=== PATIENT | female | born 1985 | race Caucasian/White ===

== ENCOUNTER 2021-08-07 14:11 | Inpatient (IN) | payer OTHER ==
[2021-08-07] MEDS ORDERED: diazePAM 5 MG TABLET PO ONE (18:53)
[2021-08-07] MEDS ORDERED: NICOTINE 10 MG CARTRIDGE (INHALER) IH PRN (18:53)
[2021-08-07] MEDS ORDERED: NICOTINE POLACRILEX 4 MG GUM BUC PRN (18:53)
[2021-08-07] MEDS ORDERED: ONDANSETRON *ODT* 4 MG TABLET SL PRN (18:53)
[2021-08-07] MEDS ORDERED: MAG HYDROX/AL HYDROX/SIMETH 30 ML UNIT-DOSE CUP PO PRN (18:53)
[2021-08-07] MEDS ORDERED: ACETAMINOPHEN 325 MG TABLET (FP) PO PRN (18:53)
[2021-08-07] MEDS ORDERED: MENTHOL/PHENOL 1 EACH UD MM PRN (18:53)
[2021-08-07] MEDS ORDERED: MAGNESIUM CITRATE 300 ML BOTTLE PO PRN (18:53)
[2021-08-07] MEDS ORDERED: MAGNESIUM HYDROX 2400MG/30ML ORAL SUSPENSION 30 ML CUP PO PRN (18:53)
[2021-08-07] MEDS ORDERED: BISMUTH SUBSALICYLATE 524 MG/30 ML PO PRN (18:53)
[2021-08-07] MEDS ORDERED: COLLOIDAL OATMEAL 1 BAR EACH TP PRN (18:56)
[2021-08-07 19:21] VITALS: BMI 27.4
[2021-08-07] MEDS: ACETAMINOPHEN 325 MG TABLET (FP) PO PRN (21:11)
[2021-08-07] MEDS: THIAMINE HCL 100 MG TABLET (FP) PO SCH (21:13)
[2021-08-07] MEDS ORDERED: hydrOXYzine PAMOATE 25 MG CAPSULE (FP) PO SCH (22:00)
[2021-08-07] MEDS ORDERED: CHLORHEXIDINE GLUCONATE 0.12% 15ML CUP MM SCH (22:00)
[2021-08-07] MEDS ORDERED: MELATONIN 5 MG TABLETS PO SCH (22:00)
[2021-08-07] MEDS: diazePAM 5 MG TABLET PO SCH ×2 (23:11→23:12)
[2021-08-07] MEDS: ZINC OXIDE 20% TOPICAL OINTMENT 30 GM TUBE TP SCH (23:46)
[2021-08-08] MEDS: diazePAM 5 MG TABLET PO SCH ×5 (06:23→22:37)
[2021-08-08] MEDS: METHOCARBAMOL 500 MG TABLET PO PRN ×2 (06:24→14:11)
[2021-08-08] MEDS: CHLORHEXIDINE GLUCONATE 118 ML MOUTHWASH MM SCH ×2 (10:20→22:36)
[2021-08-08] MEDS: PRENATAL VITAMINS W/ FOLIC ACID TABLET (FP) PO SCH (10:21)
[2021-08-08] MEDS: ZINC OXIDE 20% TOPICAL OINTMENT 30 GM TUBE TP SCH ×2 (10:22→22:36)
[2021-08-08 11:54] LABS: HEMATOCRIT 39.5 % (32.4-45.2); HEMOGLOBIN 13.3 GM/dL (10.7-15.3); MCH 30.1 pg (25.7-33.7); MCHC 33.8 g/dl (32.0-36.0); MEAN CELL VOLUME 89.2 fl (80-96); MEAN PLT VOLUME 7.2 fl (7.5-11.1); PLATELET COUNT 266 10^3/uL (134-434); RBC 4.42 M/mm3 (3.60-5.2); RDW 14.3 % (11.6-15.6); WHITE BLOOD COUNT 5.2 K/mm3 (4.0-10.0)
[2021-08-08 12:01] LABS: BLOOD UREA NITROGEN 13.7 mg/dL (7-18); CALCIUM 8.5 mg/dL (8.5-10.1)
[2021-08-08 12:02] LABS: ALBUMIN 3.3 g/dl (3.4-5.0)
[2021-08-08 12:05] LABS: CREATININE 0.7 mg/dL (0.55-1.3)
[2021-08-08 12:06] LABS: BILIRUBIN,TOTAL 0.4 mg/dL (0.2-1); TOT PROT 6.5 g/dl (6.4-8.2)
[2021-08-08] MEDS: diazePAM 5 MG TABLET PO PRN ×2 (14:42→19:27)
[2021-08-08] MEDS ORDERED: SUVOREXANT 10 MG TABLET PO PRN (22:00)
[2021-08-08] MEDS: THIAMINE HCL 100 MG TABLET (FP) PO SCH (22:36)
[2021-08-08] MEDS: ACETAMINOPHEN 325 MG TABLET (FP) PO PRN (23:12)
[2021-08-08] MEDS: IBUPROFEN 400 MG TABLET (FP) PO PRN (23:26)
[2021-08-09] MEDS: diazePAM 5 MG TABLET PO SCH ×3 (06:13→22:21)
[2021-08-09] MEDS: ZINC OXIDE 20% TOPICAL OINTMENT 30 GM TUBE TP SCH ×2 (10:04→22:22)
[2021-08-09] MEDS: diazePAM 5 MG TABLET PO PRN (10:05)
[2021-08-09] MEDS: hydrOXYzine PAMOATE 50 MG CAPSULE (FP) PO PRN ×2 (10:05→17:44)
[2021-08-09] MEDS: PRENATAL VITAMINS W/ FOLIC ACID TABLET (FP) PO SCH (10:05)
[2021-08-09] MEDS: CHLORHEXIDINE GLUCONATE 118 ML MOUTHWASH MM SCH ×2 (10:08→22:21)
[2021-08-09] MEDS: METHOCARBAMOL 500 MG TABLET PO PRN (17:44)
[2021-08-09] MEDS: IBUPROFEN 400 MG TABLET (FP) PO PRN (18:51)
[2021-08-09] MEDS ORDERED: SUVOREXANT 15 MG TABLET PO PRN (22:00)
[2021-08-09] MEDS: THIAMINE HCL 100 MG TABLET (FP) PO SCH (22:21)
[2021-08-09] MEDS: ACETAMINOPHEN 325 MG TABLET (FP) PO PRN (22:25)
[2021-08-10] MEDS: diazePAM 5 MG TABLET PO SCH ×2 (06:03→17:42)
[2021-08-10] MEDS: PRENATAL VITAMINS W/ FOLIC ACID TABLET (FP) PO SCH (10:03)
[2021-08-10] MEDS: CHLORHEXIDINE GLUCONATE 118 ML MOUTHWASH MM SCH ×2 (10:03→23:00)
[2021-08-10] MEDS: METHOCARBAMOL 500 MG TABLET PO PRN (10:04)
[2021-08-10] MEDS: diazePAM 5 MG TABLET PO PRN ×2 (10:04→14:17)
[2021-08-10] MEDS: ZINC OXIDE 20% TOPICAL OINTMENT 30 GM TUBE TP SCH ×2 (10:04→23:01)
[2021-08-10] MEDS: IBUPROFEN 400 MG TABLET (FP) PO PRN ×2 (13:16→19:46)
[2021-08-10] MEDS: ACETAMINOPHEN 325 MG TABLET (FP) PO PRN (17:43)
[2021-08-10] MEDS: LIDOCAINE VISCOUS 2% ORAL/TOP 15 ML UNIT-DOSE CUP MM PRN (19:43)
[2021-08-10] MEDS: hydrOXYzine PAMOATE 50 MG CAPSULE (FP) PO PRN (19:43)
[2021-08-10] MEDS: THIAMINE HCL 100 MG TABLET (FP) PO SCH (23:00)
[2021-08-11] MEDS: LIDOCAINE VISCOUS 2% ORAL/TOP 15 ML UNIT-DOSE CUP MM PRN (02:47)
[2021-08-11] MEDS ORDERED: diazePAM 5 MG TABLET PO ONE (06:00)
[2021-08-11] MEDS: hydrOXYzine PAMOATE 50 MG CAPSULE (FP) PO PRN (06:12)
[2021-08-11 09:47] VITALS: BP 109/65; PULSE 102; TEMP 97
[2021-08-11] MEDS: ZINC OXIDE 20% TOPICAL OINTMENT 30 GM TUBE TP SCH (10:09)
[2021-08-11] MEDS: CHLORHEXIDINE GLUCONATE 118 ML MOUTHWASH MM SCH (10:10)
[2021-08-11] MEDS: PRENATAL VITAMINS W/ FOLIC ACID TABLET (FP) PO SCH (10:10)
== END 2021-08-11 10:51 | disposition home or self-care (01) | DRG 774 ==
LOC: YASAS 14:11 → Y6N 19:05
PROVIDERS: ADMIT Allergy & Immunology; ATTEND Allergy & Immunology
PROC: HZ2ZZZZ Detoxification Services for Substance Abuse Treatment (ICD-10-PCS; principal; 2021-08-07)
DX: F10.230 Alcohol dependence with withdrawal, uncomplicated (principal); F14.20 Cocaine dependence, uncomplicated; F17.210 Nicotine dependence, cigarettes, uncomplicated; F19.280 Other psychoactive substance dependence with psychoactive substance-induced anxiety disorder; F19.282 Other psychoactive substance dependence with psychoactive substance-induced sleep disorder; K08.89 Other specified disorders of teeth and supporting structures; R76.11 Nonspecific reaction to tuberculin skin test without active tuberculosis; Z56.0 Unemployment, unspecified
CPT/HCPCS: 36415; 71046-TC-FY; 80053; 85027; 86780; C9803; U0003; U0005

== ENCOUNTER 2021-12-25 08:43 | Inpatient (IN) | payer OTHER ==
[2021-12-25] MEDS ORDERED: BISMUTH SUBSALICYLATE 262 MG/15 ML BTL PO PRN (09:24)
[2021-12-25] MEDS ORDERED: MAGNESIUM CITRATE 300 ML BOTTLE PO PRN (09:24)
[2021-12-25] MEDS ORDERED: ACETAMINOPHEN 325 MG TABLET (FP) PO PRN (09:24)
[2021-12-25] MEDS ORDERED: ONDANSETRON *ODT* 4 MG TABLET SL PRN (09:24)
[2021-12-25] MEDS ORDERED: cloNIDine HCL 0.1 MG TABLET PO ONE (09:24)
[2021-12-25] MEDS ORDERED: MAGNESIUM HYDROX 2400MG/30ML ORAL SUSPENSION 30 ML CUP PO PRN (09:24)
[2021-12-25] MEDS ORDERED: BUPRENORPHINE HCL 150 MCG, BUPRENORPHINE HCL 75 MCG BC ONE (09:24)
[2021-12-25] MEDS ORDERED: NICOTINE 10 MG CARTRIDGE (INHALER) IH PRN (09:24)
[2021-12-25] MEDS ORDERED: diazePAM 5 MG TABLET PO PRN (09:24)
[2021-12-25] MEDS ORDERED: MAG HYDROX/AL HYDROX/SIMETH 30 ML UNIT-DOSE CUP PO PRN (09:24)
[2021-12-25] MEDS ORDERED: MENTHOL/PHENOL 1 EACH UD MM PRN (09:24)
[2021-12-25] MEDS ORDERED: LOPERAMIDE HCL 2 MG CAPSULE PO PRN (09:24)
[2021-12-25 09:29] VITALS: BMI 26.1
[2021-12-25] MEDS ORDERED: BUPRENORPHINE HCL 150 MCG FILM BC ONE (09:36)
[2021-12-25] MEDS ORDERED: BUPRENORPHINE HCL 75 MCG FILM BC ONE (09:36)
[2021-12-25] MEDS ORDERED: ONDANSETRON *ODT* 4 MG TABLET ONE (09:37)
[2021-12-25] MEDS: PRENATAL VITAMINS W/ FOLIC ACID TABLET (FP) PO SCH (10:34)
[2021-12-25] MEDS: hydrOXYzine PAMOATE 25 MG CAPSULE (FP) PO SCH ×4 (10:35→22:24)
[2021-12-25 13:43] LABS: HEMATOCRIT 39.6 % (32.4-45.2); HEMOGLOBIN 12.9 GM/dL (10.7-15.3); MCH 29.7 pg (25.7-33.7); MCHC 32.5 g/dl (32.0-36.0); MEAN CELL VOLUME 91.4 fl (80-96); MEAN PLT VOLUME 7.7 fl (7.5-11.1); PLATELET COUNT 266 10^3/uL (134-434); RBC 4.33 M/mm3 (3.60-5.2); RDW 13.5 % (11.6-15.6); WHITE BLOOD COUNT 7.1 K/mm3 (4.0-10.0)
[2021-12-25 13:51] LABS: ALBUMIN 3.8 g/dl (3.4-5.0); BLOOD UREA NITROGEN 12.3 mg/dL (7-18)
[2021-12-25 13:55] LABS: CREATININE 0.9 mg/dL (0.55-1.3)
[2021-12-25 13:56] LABS: BILIRUBIN,TOTAL 0.8 mg/dL (0.2-1); TOT PROT 6.9 g/dl (6.4-8.2)
[2021-12-25 14:06] LABS: CALCIUM 8.6 mg/dL (8.5-10.1)
[2021-12-25] MEDS ORDERED: SUVOREXANT 10 MG TABLET PO PRN (22:00)
[2021-12-25] MEDS: MELATONIN 5 MG TABLETS PO SCH (22:23)
[2021-12-25] MEDS: THIAMINE HCL 100 MG TABLET (FP) PO SCH (22:24)
[2021-12-26] MEDS ORDERED: BUPRENORPHINE HCL 75 MCG FILM BC ONE ×2 (04:29→17:34)
[2021-12-26] MEDS ORDERED: BUPRENORPHINE HCL 150 MCG FILM BC ONE ×2 (04:29→17:33)
[2021-12-26] MEDS: hydrOXYzine PAMOATE 25 MG CAPSULE (FP) PO SCH ×5 (06:20→22:14)
[2021-12-26] MEDS: BUPRENORPHINE HCL 150 MCG, BUPRENORPHINE HCL 75 MCG BC SCH ×2 (06:24→18:13)
[2021-12-26] MEDS: PRENATAL VITAMINS W/ FOLIC ACID TABLET (FP) PO SCH (10:09)
[2021-12-26] MEDS: cloNIDine HCL 0.1 MG TABLET PO PRN (14:07)
[2021-12-26] MEDS ORDERED: POTASSIUM CHLORIDE ORAL LIQUID 20 MEQ/15 ML PO ONE ×2 (15:30→19:30)
[2021-12-26] MEDS ORDERED: BACLOFEN 10 MG TABLET (FP) PO ONE (15:42)
[2021-12-26] MEDS: THIAMINE HCL 100 MG TABLET (FP) PO SCH (22:14)
[2021-12-26] MEDS: MELATONIN 5 MG TABLETS PO SCH (22:14)
[2021-12-26] MEDS: METHOCARBAMOL 500 MG TABLET PO PRN (22:14)
[2021-12-27] MEDS: BUPRENORPHINE HCL 450 MCG FILM BC SCH ×2 (06:28→17:03)
[2021-12-27] MEDS: hydrOXYzine PAMOATE 25 MG CAPSULE (FP) PO SCH ×5 (06:30→22:14)
[2021-12-27] MEDS: PRENATAL VITAMINS W/ FOLIC ACID TABLET (FP) PO SCH (10:11)
[2021-12-27] MEDS: METHOCARBAMOL 500 MG TABLET PO PRN (10:11)
[2021-12-27] MEDS: IBUPROFEN 400 MG TABLET (FP) PO PRN (10:14)
[2021-12-27] MEDS: METHYL SALICYLATE/MENTHOL OINT 30 GM TUBE TP SCH ×2 (10:21→22:15)
[2021-12-27] MEDS: BACITRACIN/POLYMYXIN B SULFATE 15 GM TUBE TP SCH ×2 (10:21→22:15)
[2021-12-27] MEDS ORDERED: SUVOREXANT 10 MG TABLET PO PRN (22:00)
[2021-12-27] MEDS: MELATONIN 5 MG TABLETS PO SCH (22:14)
[2021-12-27] MEDS: ACETAMINOPHEN 325 MG TABLET (FP) PO PRN (22:14)
[2021-12-27] MEDS: THIAMINE HCL 100 MG TABLET (FP) PO SCH (22:14)
[2021-12-28] MEDS: hydrOXYzine PAMOATE 25 MG CAPSULE (FP) PO SCH ×6 (05:42→22:18)
[2021-12-28] MEDS: ACETAMINOPHEN 325 MG TABLET (FP) PO PRN ×2 (05:43→17:24)
[2021-12-28] MEDS: BUPRENORPHINE/NALOXONE 4 MG/1 MG FILM PACKET SL SCH ×2 (05:44→17:23)
[2021-12-28] MEDS ORDERED: diazePAM 5 MG TABLET PO PRN (09:54)
[2021-12-28] MEDS: METHOCARBAMOL 500 MG TABLET PO PRN (10:00)
[2021-12-28] MEDS: BACITRACIN/POLYMYXIN B SULFATE 15 GM TUBE TP SCH ×2 (10:00→22:19)
[2021-12-28] MEDS: PRENATAL VITAMINS W/ FOLIC ACID TABLET (FP) PO SCH (10:00)
[2021-12-28] MEDS: cloNIDine HCL 0.1 MG TABLET PO PRN (10:00)
[2021-12-28] MEDS: METHYL SALICYLATE/MENTHOL OINT 30 GM TUBE TP SCH ×2 (10:00→22:19)
[2021-12-28] MEDS: IBUPROFEN 400 MG TABLET (FP) PO PRN (10:04)
[2021-12-28 14:08] LABS: SARS-CoV-2 NAA Not Detected (Not Detected)
[2021-12-28] MEDS ORDERED: BENZOCAINE 20 % GEL TUBE MM PRN (18:21)
[2021-12-28] MEDS: THIAMINE HCL 100 MG TABLET (FP) PO SCH (22:18)
[2021-12-28] MEDS: MELATONIN 5 MG TABLETS PO SCH (22:19)
[2021-12-29] MEDS ORDERED: BUPRENORPHINE/NALOXONE 8 MG/2 MG FILM PACKET SL ONE (06:00)
[2021-12-29] MEDS: ACETAMINOPHEN 325 MG TABLET (FP) PO PRN ×3 (06:15→17:38)
[2021-12-29] MEDS: hydrOXYzine PAMOATE 25 MG CAPSULE (FP) PO SCH ×5 (06:17→22:19)
[2021-12-29] MEDS: METHOCARBAMOL 500 MG TABLET PO PRN (10:28)
[2021-12-29] MEDS: PRENATAL VITAMINS W/ FOLIC ACID TABLET (FP) PO SCH (10:28)
[2021-12-29] MEDS: METHYL SALICYLATE/MENTHOL OINT 30 GM TUBE TP SCH ×2 (10:28→22:22)
[2021-12-29] MEDS: BACITRACIN/POLYMYXIN B SULFATE 15 GM TUBE TP SCH ×2 (10:29→22:22)
[2021-12-29] MEDS: IBUPROFEN 400 MG TABLET (FP) PO PRN ×2 (13:32→22:20)
[2021-12-29 18:52] VITALS: TEMP 97.1
[2021-12-29] MEDS: THIAMINE HCL 100 MG TABLET (FP) PO SCH (22:19)
[2021-12-29] MEDS: MELATONIN 5 MG TABLETS PO SCH (22:22)
[2021-12-30] MEDS: ACETAMINOPHEN 325 MG TABLET (FP) PO PRN (05:41)
[2021-12-30] MEDS: hydrOXYzine PAMOATE 25 MG CAPSULE (FP) PO SCH ×2 (07:11→10:16)
[2021-12-30 08:03] VITALS: BP 106/44; PULSE 67
[2021-12-30] MEDS ORDERED: BUPRENORPHINE/NALOXONE 8 MG/2 MG FILM PACKET SL ONE (09:28)
[2021-12-30] MEDS: PRENATAL VITAMINS W/ FOLIC ACID TABLET (FP) PO SCH (10:15)
[2021-12-30] MEDS: BACITRACIN/POLYMYXIN B SULFATE 15 GM TUBE TP SCH (10:16)
[2021-12-30] MEDS: METHYL SALICYLATE/MENTHOL OINT 30 GM TUBE TP SCH (10:16)
== END 2021-12-30 10:50 | disposition home or self-care (01) | DRG 773 ==
LOC: YASAS 08:43 → Y6N 09:18
PROVIDERS: ADMIT Allergy & Immunology; ATTEND Allergy & Immunology
PROC: HZ2ZZZZ Detoxification Services for Substance Abuse Treatment (ICD-10-PCS; principal; 2021-12-25)
DX: F11.23 Opioid dependence with withdrawal (principal); F14.20 Cocaine dependence, uncomplicated; F17.210 Nicotine dependence, cigarettes, uncomplicated; F19.280 Other psychoactive substance dependence with psychoactive substance-induced anxiety disorder; F19.282 Other psychoactive substance dependence with psychoactive substance-induced sleep disorder; F19.24 Other psychoactive substance dependence with psychoactive substance-induced mood disorder; F41.8 Other specified anxiety disorders; F32.A Depression, unspecified; Z86.11 Personal history of tuberculosis; Z56.0 Unemployment, unspecified; Z59.00 Homelessness unspecified
CPT/HCPCS: 36415; 80053; 84132; 85027; 86780; 93005; 93010; C9803; J0475; J0735; Q0162; U0003; U0005

== ENCOUNTER 2023-01-20 10:46 | Inpatient (IN) | payer OTHER ==
[2023-01-20 11:27] VITALS: BMI 29.7
[2023-01-20] MEDS ORDERED: hydrOXYzine PAMOATE 25 MG CAPSULE (FP) PO PRN (12:05)
[2023-01-20] MEDS ORDERED: NALOXONE HCL (KLOXXADO) 8 MG SPRAY NS PRN (12:05)
[2023-01-20] MEDS ORDERED: BUPRENORPHINE HCL 150 MCG, BUPRENORPHINE HCL 75 MCG BC ONE (12:05)
[2023-01-20] MEDS ORDERED: ONDANSETRON *ODT* 4 MG TABLET SL PRN (12:05)
[2023-01-20] MEDS ORDERED: BISMUTH SUBSALICYLATE 262 MG/15 ML BTL PO PRN (12:05)
[2023-01-20] MEDS ORDERED: diazePAM 5 MG TABLET PO PRN (12:05)
[2023-01-20] MEDS ORDERED: ACETAMINOPHEN 325 MG TABLET (FP) PO PRN (12:05)
[2023-01-20] MEDS ORDERED: BUPRENORPHINE HCL 150 MCG, BUPRENORPHINE HCL 75 MCG BC PRN (12:05)
[2023-01-20] MEDS ORDERED: NICOTINE 10 MG CARTRIDGE (INHALER) IH PRN (12:05)
[2023-01-20] MEDS ORDERED: NALOXONE HCL 0.4 MG/ML VIAL IM PRN (12:05)
[2023-01-20] MEDS ORDERED: MAG HYDROX/AL HYDROX/SIMETH 30 ML UNIT-DOSE CUP PO PRN (12:05)
[2023-01-20] MEDS ORDERED: MAGNESIUM HYDROX 2400MG/30ML ORAL SUSPENSION 30 ML CUP PO PRN (12:05)
[2023-01-20] MEDS ORDERED: IBUPROFEN 400 MG TABLET (FP) PO PRN (12:05)
[2023-01-20] MEDS ORDERED: POLYETHYLENE GLYCOL (HEALTHYLAX) 3350 17 GM PACKET PO PRN (12:05)
[2023-01-20] MEDS ORDERED: guaiFENesin 600 MG TABLET.ER (FP) PO PRN (12:05)
[2023-01-20] MEDS ORDERED: BENZONATATE 200 MG CAPSULE PO PRN (12:05)
[2023-01-20] MEDS ORDERED: IBUPROFEN 600 MG TABLET (FP) PO PRN (12:05)
[2023-01-20] MEDS ORDERED: BENZOCAINE/MENTHOL (CHLORASEPTIC ) LOZENGE MM PRN (12:05)
[2023-01-20] MEDS ORDERED: DICYCLOMINE HCL 10 MG CAPSULE PO PRN (12:05)
[2023-01-20] MEDS ORDERED: LOPERAMIDE HCL 2 MG CAPSULE PO PRN (12:05)
[2023-01-20] MEDS ORDERED: cloNIDine HCL 0.1 MG TABLET PO ONE (12:05)
[2023-01-20] MEDS ORDERED: BUPRENORPHINE HCL 75 MCG FILM BC ONE (12:33)
[2023-01-20] MEDS ORDERED: BUPRENORPHINE HCL 150 MCG FILM BC ONE (12:33)
[2023-01-20] MEDS: PRENATAL VITAMINS W/ FOLIC ACID TABLET (FP) PO SCH (12:39)
[2023-01-20] MEDS ORDERED: cloNIDine HCL 0.1 MG TABLET PO PRN (16:05)
[2023-01-20 16:39] LABS: HEMATOCRIT 39.4 % (32.4-45.2); MCH 28.1 pg (25.7-33.7); MEAN CELL VOLUME 85.3 fl (80-96); MEAN PLT VOLUME 7.4 fl (7.5-11.1); PLATELET COUNT 315 10^3/uL (134-434); RBC 4.62 M/mm3 (3.60-5.2); RDW 13.7 % (11.6-15.6)
[2023-01-20 16:41] LABS: CALCIUM 8.6 mg/dL (8.5-10.1)
[2023-01-20 16:42] LABS: ALBUMIN 3.6 g/dl (3.4-5.0); BLOOD UREA NITROGEN 12.3 mg/dL (7-18)
[2023-01-20 16:46] LABS: CREATININE 0.6 mg/dL (0.55-1.3)
[2023-01-20 16:47] LABS: BILIRUBIN,TOTAL 0.6 mg/dL (0.2-1); TOT PROT 7.2 g/dl (6.4-8.2)
[2023-01-20] MEDS ORDERED: THIAMINE HCL 100 MG TABLET (FP) PO SCH (22:00)
[2023-01-20] MEDS ORDERED: MELATONIN 5 MG TABLETS PO SCH (22:00)
[2023-01-20] MEDS: METHOCARBAMOL 500 MG TABLET PO PRN (22:32)
[2023-01-21] MEDS ORDERED: BUPRENORPHINE HCL 150 MCG, BUPRENORPHINE HCL 75 MCG BC PRN
[2023-01-21] MEDS ORDERED: BUPRENORPHINE HCL 150 MCG, BUPRENORPHINE HCL 75 MCG BC SCH (06:00)
[2023-01-21 09:04] VITALS: BP 101/54; PULSE 83; RESP 16; TEMP 97.1
[2023-01-21] MEDS ORDERED: cloNIDine HCL 0.1 MG TABLET PO PRN (09:55)
[2023-01-21] MEDS ORDERED: methaDONE HCL 10 MG TABLET (FOR DETOX USE ONLY) PO ONE (09:55)
[2023-01-21] MEDS: METHOCARBAMOL 500 MG TABLET PO PRN (10:27)
[2023-01-21] MEDS: PRENATAL VITAMINS W/ FOLIC ACID TABLET (FP) PO SCH (10:27)
[2023-01-21] MEDS ORDERED: SUVOREXANT 10 MG TABLET PO PRN (22:00)
[2023-01-22] MEDS ORDERED: BUPRENORPHINE HCL 450 MCG FILM BC SCH (06:00)
[2023-01-23] MEDS ORDERED: BUPRENORPHINE/NALOXONE 4 MG/1 MG FILM PACKET SL SCH (06:00)
[2023-01-23] MEDS ORDERED: methaDONE HCL 10 MG TABLET (FOR DETOX USE ONLY) PO ONE (10:00)
[2023-01-24] MEDS ORDERED: BUPRENORPHINE/NALOXONE 8 MG/2 MG FILM PACKET SL ONE (06:00)
[2023-01-25] MEDS ORDERED: methaDONE HCL 10 MG TABLET (FOR DETOX USE ONLY) PO ONE (10:00)
== END 2023-01-21 11:29 | disposition left against medical advice (07) | DRG 770 ==
LOC: YASAS 10:46 → Y3N 12:28
PROVIDERS: ADMIT Allergy & Immunology; ATTEND Surgery
PROC: HZ2ZZZZ Detoxification Services for Substance Abuse Treatment (ICD-10-PCS; principal; 2023-01-20)
DX: F11.23 Opioid dependence with withdrawal (principal); F14.20 Cocaine dependence, uncomplicated; F17.210 Nicotine dependence, cigarettes, uncomplicated; F19.282 Other psychoactive substance dependence with psychoactive substance-induced sleep disorder; F19.24 Other psychoactive substance dependence with psychoactive substance-induced mood disorder; R76.11 Nonspecific reaction to tuberculin skin test without active tuberculosis; Z56.0 Unemployment, unspecified; Z59.00 Homelessness unspecified
CPT/HCPCS: 36415; 80053; 85027; 86780; 87811; 93005; 93010; C9803-CS; U0003; U0005

== ENCOUNTER 2023-11-14 17:21 | Inpatient (IN) | payer OTHER ==
[2023-11-14 17:50] VITALS: BMI 18.8
[2023-11-14] MEDS ORDERED: NALOXONE HCL (KLOXXADO) 8 MG SPRAY NS PRN (19:56)
[2023-11-14] MEDS ORDERED: NALOXONE HCL 0.4 MG/ML VIAL IM PRN (19:56)
[2023-11-14] MEDS ORDERED: IBUPROFEN 600 MG TABLET (FP) PO PRN (19:56)
[2023-11-14] MEDS ORDERED: LOPERAMIDE HCL 2 MG CAPSULE PO PRN (19:56)
[2023-11-14] MEDS ORDERED: MAGNESIUM HYDROX 2400MG/30ML ORAL SUSPENSION 30 ML CUP PO PRN (19:56)
[2023-11-14] MEDS ORDERED: IBUPROFEN 400 MG TABLET (FP) PO PRN (19:56)
[2023-11-14] MEDS ORDERED: BENZONATATE 200 MG CAPSULE PO PRN (19:56)
[2023-11-14] MEDS ORDERED: BISMUTH SUBSALICYLATE 524 MG/30 ML PO PRN (19:56)
[2023-11-14] MEDS ORDERED: ONDANSETRON *ODT* 4 MG TABLET SL PRN (19:56)
[2023-11-14] MEDS ORDERED: POLYETHYLENE GLYCOL (HEALTHYLAX) 3350 17 GM PACKET PO PRN (19:56)
[2023-11-14] MEDS ORDERED: DICYCLOMINE HCL 10 MG CAPSULE PO PRN (19:56)
[2023-11-14] MEDS ORDERED: guaiFENesin 600 MG TABLET.ER (FP) PO PRN (19:56)
[2023-11-14] MEDS ORDERED: MAG HYDROX/AL HYDROX/SIMETH 30 ML UNIT-DOSE CUP PO PRN (19:56)
[2023-11-14] MEDS ORDERED: BENZOCAINE/MENTHOL (CHLORASEPTIC ) LOZENGE MM PRN (19:56)
[2023-11-14] MEDS ORDERED: P-EPHED 60MG/TRIPROLIDI 2.5MG TABLET PO PRN (19:56)
[2023-11-14] MEDS ORDERED: BACITRACIN ZINC 15 GM TUBE TOPICAL OINTMENT TP SCH (22:00)
[2023-11-14] MEDS: THIAMINE HCL 100 MG TABLET (FP) PO SCH (22:46)
[2023-11-14] MEDS: MELATONIN 5 MG TABLETS PO SCH (22:46)
[2023-11-14] MEDS: BACITRACIN 0.9 GM PACKET TP SCH (22:48)
[2023-11-15] MEDS: METHOCARBAMOL 500 MG TABLET PO PRN ×2 (02:22→10:34)
[2023-11-15] MEDS: hydrOXYzine PAMOATE 25 MG CAPSULE (FP) PO PRN ×3 (02:22→22:32)
[2023-11-15 09:53] VITALS: RESP 16
[2023-11-15] MEDS ORDERED: PRENATAL VITAMINS W/ FOLIC ACID TABLET (FP) PO SCH (10:00)
[2023-11-15] MEDS: BACITRACIN 0.9 GM PACKET TP SCH ×2 (10:34→22:31)
[2023-11-15 10:38] LABS: HEMATOCRIT 41.8 % (32.4-45.2); HEMOGLOBIN 13.9 GM/dL (10.7-15.3); MCH 29.4 pg (25.7-33.7); MCHC 33.2 g/dl (32.0-36.0); MEAN CELL VOLUME 88.7 fl (80-96); MEAN PLT VOLUME 7.1 fl (7.5-11.1); PLATELET COUNT 291 10^3/uL (134-434); RBC 4.71 M/mm3 (3.60-5.2); RDW 12.8 % (11.6-15.6); WHITE BLOOD COUNT 10.3 K/mm3 (4.0-10.0)
[2023-11-15] MEDS ORDERED: diazePAM 5 MG TABLET PO ONE (10:46)
[2023-11-15 11:05] LABS: POTASSIUM 3.6 mmol/L (3.5-5.1)
[2023-11-15 11:10] LABS: ALBUMIN 3.2 g/dl (3.4-5.0); BLOOD UREA NITROGEN 9.3 mg/dL (7-18); CALCIUM 8.6 mg/dL (8.5-10.1)
[2023-11-15 11:12] LABS: CREATININE 0.6 mg/dL (0.55-1.3)
[2023-11-15 11:14] LABS: BILIRUBIN,TOTAL 0.3 mg/dL (0.2-1); TOT PROT 7.3 g/dl (6.4-8.2)
[2023-11-15] MEDS: ACETAMINOPHEN 325 MG TABLET (FP) PO PRN (15:06)
[2023-11-15] MEDS: diazePAM 5 MG TABLET PO PRN (19:49)
[2023-11-15] MEDS: MELATONIN 5 MG TABLETS PO SCH (22:31)
[2023-11-15] MEDS: THIAMINE HCL 100 MG TABLET (FP) PO SCH (22:31)
[2023-11-16] MEDS: METHOCARBAMOL 500 MG TABLET PO PRN (00:35)
[2023-11-16] MEDS: diazePAM 5 MG TABLET PO PRN ×2 (00:35→05:56)
[2023-11-16] MEDS: ACETAMINOPHEN 325 MG TABLET (FP) PO PRN (05:55)
[2023-11-16 13:30] VITALS: BP 111/62; PULSE 78; TEMP 98.1
== END 2023-11-16 08:56 | disposition short-term general hospital (02) | DRG 773 ==
LOC: YASAS 17:21 → Y3N 21:44
PROVIDERS: ADMIT Allergy & Immunology; ATTEND Surgery
PROC: HZ2ZZZZ Detoxification Services for Substance Abuse Treatment (ICD-10-PCS; principal; 2023-11-14)
DX: F11.23 Opioid dependence with withdrawal (principal); F14.20 Cocaine dependence, uncomplicated; F12.20 Cannabis dependence, uncomplicated; F17.210 Nicotine dependence, cigarettes, uncomplicated; F31.9 Bipolar disorder, unspecified; F19.282 Other psychoactive substance dependence with psychoactive substance-induced sleep disorder; F41.9 Anxiety disorder, unspecified; F39 Unspecified mood [affective] disorder; R45.850 Homicidal ideations; R45.851 Suicidal ideations; B33.8 Other specified viral diseases; B97.4 Respiratory syncytial virus as the cause of diseases classified elsewhere
CPT/HCPCS: 0241U-QW; 36415; 80053; 81025; 85027; 86780; 87811

== ENCOUNTER 2023-12-14 09:44 | Inpatient (IN) | payer OTHER ==
[2023-12-14 10:07] VITALS: BMI 23.3
[2023-12-14] MEDS ORDERED: BENZOCAINE/MENTHOL (CHLORASEPTIC ) LOZENGE MM PRN (11:06)
[2023-12-14] MEDS ORDERED: NALOXONE HCL 0.4 MG/ML VIAL IM PRN (11:06)
[2023-12-14] MEDS ORDERED: ACETAMINOPHEN 325 MG TABLET (FP) PO PRN (11:06)
[2023-12-14] MEDS ORDERED: BENZONATATE 200 MG CAPSULE PO PRN (11:06)
[2023-12-14] MEDS ORDERED: ONDANSETRON *ODT* 4 MG TABLET SL PRN (11:06)
[2023-12-14] MEDS ORDERED: POLYETHYLENE GLYCOL (HEALTHYLAX) 3350 17 GM PACKET PO PRN (11:06)
[2023-12-14] MEDS ORDERED: BISMUTH SUBSALICYLATE 524 MG/30 ML PO PRN (11:06)
[2023-12-14] MEDS ORDERED: MAG HYDROX/AL HYDROX/SIMETH 30 ML UNIT-DOSE CUP PO PRN (11:06)
[2023-12-14] MEDS ORDERED: MAGNESIUM HYDROX 2400MG/30ML ORAL SUSPENSION 30 ML CUP PO PRN (11:06)
[2023-12-14] MEDS ORDERED: guaiFENesin 600 MG TABLET.ER (FP) PO PRN (11:06)
[2023-12-14] MEDS ORDERED: LOPERAMIDE HCL 2 MG CAPSULE PO PRN (11:06)
[2023-12-14] MEDS ORDERED: IBUPROFEN 400 MG TABLET (FP) PO PRN (11:06)
[2023-12-14] MEDS ORDERED: NALOXONE HCL (KLOXXADO) 8 MG SPRAY NS PRN (11:06)
[2023-12-14] MEDS ORDERED: DICYCLOMINE HCL 10 MG CAPSULE PO PRN (11:06)
[2023-12-14] MEDS: hydrOXYzine PAMOATE 25 MG CAPSULE (FP) PO ONE (11:37)
[2023-12-14] MEDS ORDERED: hydrOXYzine PAMOATE 25 MG CAPSULE (FP) PO ONE (11:42)
[2023-12-14] MEDS: cloNIDine HCL 0.1 MG TABLET PO PRN (13:06)
[2023-12-14] MEDS: THIAMINE HCL 100 MG TABLET (FP) PO SCH (22:41)
[2023-12-14] MEDS: MELATONIN 5 MG TABLETS PO SCH (22:41)
[2023-12-15] MEDS: PRENATAL VITAMINS W/ FOLIC ACID TABLET (FP) PO SCH (10:20)
[2023-12-15 10:42] LABS: HEMATOCRIT 38.9 % (32.4-45.2); HEMOGLOBIN 13.3 GM/dL (10.7-15.3); MCHC 34.1 g/dl (32.0-36.0); MEAN PLT VOLUME 7.1 fl (7.5-11.1); PLATELET COUNT 291 10^3/uL (134-434); RBC 4.42 M/mm3 (3.60-5.2); RDW 13.9 % (11.6-15.6)
[2023-12-15 10:48] LABS: POTASSIUM 4.4 mmol/L (3.5-5.1)
[2023-12-15 10:53] LABS: ALBUMIN 3.3 g/dl (3.4-5.0); CALCIUM 8.4 mg/dL (8.5-10.1)
[2023-12-15 10:56] LABS: CREATININE 0.5 mg/dL (0.55-1.3)
[2023-12-15 10:57] LABS: BILIRUBIN,TOTAL 0.5 mg/dL (0.2-1)
[2023-12-15 10:58] LABS: TOT PROT 6.5 g/dl (6.4-8.2)
[2023-12-15] MEDS: risperiDONE 0.5 MG TABLET PO SCH (12:55)
[2023-12-15] MEDS: METHOCARBAMOL 500 MG TABLET PO PRN (17:25)
[2023-12-15] MEDS: traZODone HCL 50 MG TABLET (FP) PO SCH (22:16)
[2023-12-16] MEDS: methaDONE HCL 10 MG TABLET (FOR DETOX USE ONLY) PO ONE (10:06)
[2023-12-16] MEDS ORDERED: NICOTINE POLACRILEX 2 MG GUM BUC PRN (17:40)
[2023-12-17] MEDS: NICOTINE POLACRILEX 4 MG GUM BUC PRN (14:27)
[2023-12-17] MEDS: traZODone HCL 100 MG TABLET (FP) PO SCH (22:55)
[2023-12-17] MEDS: IBUPROFEN 600 MG TABLET (FP) PO PRN (22:56)
[2023-12-18 06:46] VITALS: BP 110/48; PULSE 67; RESP 17; TEMP 97.6
[2023-12-18] MEDS ORDERED: methaDONE HCL 10 MG TABLET (FOR DETOX USE ONLY) PO ONE (10:00)
== END 2023-12-18 08:00 | disposition left against medical advice (07) | DRG 770 ==
LOC: YASAS 09:44 → Y6N 11:31
PROVIDERS: ADMIT Allergy & Immunology; ATTEND Allergy & Immunology
PROC: HZ2ZZZZ Detoxification Services for Substance Abuse Treatment (ICD-10-PCS; principal; 2023-12-14)
DX: F11.23 Opioid dependence with withdrawal (principal); F14.20 Cocaine dependence, uncomplicated; F12.20 Cannabis dependence, uncomplicated; F17.210 Nicotine dependence, cigarettes, uncomplicated; F25.1 Schizoaffective disorder, depressive type; F19.280 Other psychoactive substance dependence with psychoactive substance-induced anxiety disorder; F19.282 Other psychoactive substance dependence with psychoactive substance-induced sleep disorder
CPT/HCPCS: 36415; 80053; 80305; 80307; 81025; 85027; 86780; 87635

== ENCOUNTER 2024-02-28 22:22 | Inpatient (IN) | payer OTHER ==
[2024-02-28 23:01] VITALS: BMI 19.3
[2024-02-29] MEDS ORDERED: IBUPROFEN 400 MG TABLET (FP) PO PRN (02:10)
[2024-02-29] MEDS ORDERED: ONDANSETRON *ODT* 4 MG TABLET SL PRN (02:10)
[2024-02-29] MEDS ORDERED: ACETAMINOPHEN 325 MG TABLET (FP) PO PRN (02:10)
[2024-02-29] MEDS ORDERED: IBUPROFEN 600 MG TABLET (FP) PO PRN (02:10)
[2024-02-29] MEDS ORDERED: MAG HYDROX/AL HYDROX/SIMETH 30 ML UNIT-DOSE CUP PO PRN (02:10)
[2024-02-29] MEDS ORDERED: MAGNESIUM HYDROX 2400MG/30ML ORAL SUSPENSION 30 ML CUP PO PRN (02:10)
[2024-02-29] MEDS ORDERED: NALOXONE HCL 0.4 MG/ML VIAL IM PRN (02:10)
[2024-02-29] MEDS ORDERED: LOPERAMIDE HCL 2 MG CAPSULE PO PRN (02:10)
[2024-02-29] MEDS ORDERED: guaiFENesin 600 MG TABLET.ER (FP) PO PRN (02:10)
[2024-02-29] MEDS ORDERED: NALOXONE HCL (KLOXXADO) 8 MG SPRAY NS PRN (02:10)
[2024-02-29] MEDS ORDERED: BENZOCAINE/MENTHOL (CHLORASEPTIC ) LOZENGE MM PRN (02:10)
[2024-02-29] MEDS ORDERED: DICYCLOMINE HCL 10 MG CAPSULE PO PRN (02:10)
[2024-02-29] MEDS ORDERED: POLYETHYLENE GLYCOL (HEALTHYLAX) 3350 17 GM PACKET PO PRN (02:10)
[2024-02-29] MEDS ORDERED: hydrOXYzine PAMOATE 25 MG CAPSULE (FP) PO PRN (02:10)
[2024-02-29] MEDS ORDERED: BENZONATATE 200 MG CAPSULE PO PRN (02:10)
[2024-02-29] MEDS ORDERED: BISMUTH SUBSALICYLATE 524 MG/30 ML PO PRN (02:10)
[2024-02-29] MEDS ORDERED: cloNIDine HCL 0.1 MG TABLET PO PRN (02:13)
[2024-02-29] MEDS: methaDONE HCL 10 MG TABLET (FOR DETOX USE ONLY) PO ONE (03:05)
[2024-02-29] MEDS: PRENATAL VITAMINS W/ FOLIC ACID TABLET (FP) PO SCH (10:39)
[2024-02-29] MEDS: NICOTINE 14 MG/24 HOURS TOPICAL PATCH TD SCH (10:40)
[2024-02-29] MEDS: NICOTINE POLACRILEX 2 MG GUM BUC PRN (10:41)
[2024-02-29] MEDS ORDERED: risperiDONE 0.5 MG TABLET PO SCH (11:45)
[2024-02-29] MEDS: risperiDONE 1 MG TABLET PO SCH (12:02)
[2024-02-29] MEDS: THIAMINE 100 MG TABLET PO SCH (21:45)
[2024-02-29] MEDS: traZODone HCL 50 MG TABLET (FP) PO SCH (21:45)
[2024-02-29] MEDS: MELATONIN 5 MG TABLETS PO SCH (21:53)
[2024-03-01 09:25] LABS: HEMATOCRIT 35.4 % (32.4-45.2); HEMOGLOBIN 12.2 GM/dL (10.7-15.3); MCH 30.2 pg (25.7-33.7); MCHC 34.3 g/dl (32.0-36.0); MEAN CELL VOLUME 87.8 fl (80-96); MEAN PLT VOLUME 6.8 fl (7.5-11.1); PLATELET COUNT 265 10^3/uL (134-434); RBC 4.03 M/mm3 (3.60-5.2); RDW 14.7 % (11.6-15.6); WHITE BLOOD COUNT 5.1 K/mm3 (4.0-10.0)
[2024-03-01 10:00] LABS: CALCIUM 8.6 mg/dL (8.5-10.1)
[2024-03-01 10:01] LABS: ALBUMIN 3.1 g/dl (3.4-5.0); BLOOD UREA NITROGEN 11.4 mg/dL (7-18)
[2024-03-01 10:03] LABS: CREATININE 0.5 mg/dL (0.55-1.3); TOT PROT 6.2 g/dl (6.4-8.2)
[2024-03-01 10:04] LABS: BILIRUBIN,TOTAL 0.7 mg/dL (0.2-1)
[2024-03-01] MEDS: METHOCARBAMOL 500 MG TABLET PO PRN (22:19)
[2024-03-02] MEDS: methaDONE HCL 10 MG TABLET (FOR DETOX USE ONLY) PO ONE (09:30)
[2024-03-03] MEDS: MELATONIN 5 MG TABLETS PO SCH (21:40)
[2024-03-03] MEDS: traZODone HCL 100 MG TABLET (FP) PO SCH (21:41)
[2024-03-03] MEDS: risperiDONE 1 MG TABLET PO SCH (21:41)
[2024-03-04] MEDS: methaDONE HCL 10 MG TABLET (FOR DETOX USE ONLY) PO ONE (09:48)
[2024-03-05 08:57] VITALS: BP 101/60; PULSE 80; RESP 20; TEMP 98
== END 2024-03-05 09:16 | disposition home or self-care (01) | DRG 773 ==
LOC: YASAS 22:22 → Y3N 02-29 01:44
PROVIDERS: ADMIT Allergy & Immunology; ATTEND Surgery
PROC: HZ2ZZZZ Detoxification Services for Substance Abuse Treatment (ICD-10-PCS; principal; 2024-03-01)
DX: F11.23 Opioid dependence with withdrawal (principal); F14.20 Cocaine dependence, uncomplicated; F25.1 Schizoaffective disorder, depressive type; F31.9 Bipolar disorder, unspecified; F19.94 Other psychoactive substance use, unspecified with psychoactive substance-induced mood disorder; F19.980 Other psychoactive substance use, unspecified with psychoactive substance-induced anxiety disorder; Z56.0 Unemployment, unspecified; Z59.00 Homelessness unspecified
CPT/HCPCS: 36415; 80053; 80305; 80307; 81025; 85027; 86780; 93005; 93010

== ENCOUNTER 2024-05-03 09:49 | Inpatient (IN) | payer OTHER ==
[2024-05-03 10:11] VITALS: BMI 20.9
[2024-05-03] MEDS ORDERED: BENZONATATE 200 MG CAPSULE PO PRN (10:22)
[2024-05-03] MEDS ORDERED: P-EPHED 60MG/TRIPROLIDI 2.5MG TABLET PO PRN (10:22)
[2024-05-03] MEDS ORDERED: ACETAMINOPHEN 325 MG TABLET (FP) PO PRN (10:22)
[2024-05-03] MEDS ORDERED: BENZOCAINE/MENTHOL (CHLORASEPTIC ) LOZENGE MM PRN (10:22)
[2024-05-03] MEDS ORDERED: BISMUTH SUBSALICYLATE 262 MG/15 ML BTL PO PRN (10:22)
[2024-05-03] MEDS ORDERED: guaiFENesin 600 MG TABLET.ER (FP) PO PRN (10:22)
[2024-05-03] MEDS ORDERED: NALOXONE HCL 0.4 MG/ML VIAL IM PRN (10:22)
[2024-05-03] MEDS ORDERED: LOPERAMIDE HCL 2 MG CAPSULE PO PRN (10:22)
[2024-05-03] MEDS ORDERED: MAG HYDROX/AL HYDROX/SIMETH 30 ML UNIT-DOSE CUP PO PRN (10:22)
[2024-05-03] MEDS ORDERED: POLYETHYLENE GLYCOL (HEALTHYLAX) 3350 17 GM PACKET PO PRN (10:22)
[2024-05-03] MEDS ORDERED: DICYCLOMINE HCL 10 MG CAPSULE PO PRN (10:22)
[2024-05-03] MEDS ORDERED: ONDANSETRON *ODT* 4 MG TABLET SL PRN (10:22)
[2024-05-03] MEDS ORDERED: IBUPROFEN 400 MG TABLET (FP) PO PRN (10:22)
[2024-05-03] MEDS ORDERED: IBUPROFEN 600 MG TABLET (FP) PO PRN (10:22)
[2024-05-03] MEDS ORDERED: NALOXONE (NARCAN) HCL 4 MG/0.1 ML SPRAY NS PRN (10:22)
[2024-05-03] MEDS ORDERED: MAGNESIUM HYDROX 2400MG/30ML ORAL SUSPENSION 30 ML CUP PO PRN (10:22)
[2024-05-03] MEDS: traZODone HCL 50 MG TABLET (FP) PO SCH (22:41)
[2024-05-03] MEDS: risperiDONE 0.5 MG TABLET PO SCH (22:42)
[2024-05-03] MEDS: THIAMINE 100 MG TABLET PO SCH (22:42)
[2024-05-03] MEDS: MELATONIN 5 MG TABLETS PO SCH (22:42)
[2024-05-04] MEDS: methaDONE HCL 10 MG TABLET PO ONE (09:36)
[2024-05-04] MEDS: cloNIDine HCL 0.1 MG TABLET PO SCH (09:36)
[2024-05-04] MEDS: PRENATAL VITAMINS W/ FOLIC ACID TABLET (FP) PO SCH (09:36)
[2024-05-04] MEDS ORDERED: methaDONE HCL 10 MG TABLET PO PRN (11:05)
[2024-05-04 13:50] LABS: HEMATOCRIT 36.5 % (32.4-45.2); HEMOGLOBIN 12.5 GM/dL (10.7-15.3); MCH 29.8 pg (25.7-33.7); MCHC 34.3 g/dl (32.0-36.0); MEAN CELL VOLUME 86.9 fl (80-96); MEAN PLT VOLUME 7.3 fl (7.5-11.1); PLATELET COUNT 266 10^3/uL (134-434); RDW 13.5 % (11.6-15.6); WHITE BLOOD COUNT 5.2 K/mm3 (4.0-10.0)
[2024-05-04 13:58] LABS: POTASSIUM 3.6 mmol/L (3.5-5.1)
[2024-05-04 14:01] LABS: ALBUMIN 3.6 g/dl (3.4-5.0); BLOOD UREA NITROGEN 7.8 mg/dL (7-18); CALCIUM 8.9 mg/dL (8.5-10.1)
[2024-05-04 14:06] LABS: BILIRUBIN,TOTAL 0.2 mg/dL (0.2-1); TOT PROT 7.1 g/dl (6.4-8.2)
[2024-05-04 14:20] LABS: CREATININE 0.5 mg/dL (0.55-1.3)
[2024-05-05] MEDS: methaDONE 40 MG, methaDONE 10 MG PO ONE (09:39)
[2024-05-05] MEDS: hydrOXYzine PAMOATE 25 MG CAPSULE (FP) PO PRN (09:40)
[2024-05-05] MEDS: QUEtiapine FUMARATE 50 MG TABLET PO ONE ×2 (14:57→16:19)
[2024-05-05] MEDS: NICOTINE POLACRILEX 2 MG GUM BC PRN (16:19)
[2024-05-05] MEDS: QUEtiapine FUMARATE 100 MG TABLET (FP) PO SCH (21:19)
[2024-05-06] MEDS ORDERED: cloNIDine HCL 0.1 MG TABLET PO PRN
[2024-05-06] MEDS: methaDONE 40 MG, methaDONE 20 MG PO ONE (09:44)
[2024-05-06] MEDS: QUEtiapine FUMARATE 100 MG TABLET (FP) PO SCH (09:45)
[2024-05-07] MEDS: methaDONE 40 MG, methaDONE 30 MG PO ONE (09:04)
[2024-05-07] MEDS: NICOTINE POLACRILEX 4 MG GUM BUC PRN (10:54)
[2024-05-07] MEDS: METHOCARBAMOL 500 MG TABLET PO PRN (22:28)
[2024-05-08] MEDS: methaDONE HCL 40 MG DISPERSABLE TABLET PO ONE (09:33)
[2024-05-09] MEDS: methaDONE 80 MG, methaDONE 10 MG PO ONE (09:14)
[2024-05-09 09:40] VITALS: BP 109/79; PULSE 84; RESP 18; TEMP 97.8
== END 2024-05-09 09:32 | disposition home or self-care (01) | DRG 773 ==
LOC: YASAS 09:49 → Y3N 10:55
PROVIDERS: ADMIT Allergy & Immunology; ATTEND Surgery
PROC: HZ2ZZZZ Detoxification Services for Substance Abuse Treatment (ICD-10-PCS; principal; 2024-05-03)
DX: F11.23 Opioid dependence with withdrawal (principal); F14.20 Cocaine dependence, uncomplicated; F12.20 Cannabis dependence, uncomplicated; F31.9 Bipolar disorder, unspecified; F19.280 Other psychoactive substance dependence with psychoactive substance-induced anxiety disorder; F19.24 Other psychoactive substance dependence with psychoactive substance-induced mood disorder; F25.1 Schizoaffective disorder, depressive type; G47.00 Insomnia, unspecified; Z87.891 Personal history of nicotine dependence; Z56.0 Unemployment, unspecified; Z59.00 Homelessness unspecified
CPT/HCPCS: 36415; 80053; 80305; 80307; 81025; 85027; 86780

== ENCOUNTER 2024-09-22 12:20 | Inpatient (IN) | payer OTHER ==
[2024-09-22 13:34] VITALS: BMI 22.6
[2024-09-22] MEDS ORDERED: LOPERAMIDE HCL 2 MG CAPSULE PO PRN (13:50)
[2024-09-22] MEDS ORDERED: POLYETHYLENE GLYCOL (HEALTHYLAX) 3350 17 GM PACKET PO PRN (13:50)
[2024-09-22] MEDS ORDERED: MAG HYDROX/AL HYDROX/SIMETH 30 ML UNIT-DOSE CUP PO PRN (13:50)
[2024-09-22] MEDS ORDERED: BENZOCAINE/MENTHOL (CHLORASEPTIC ) LOZENGE MM PRN (13:50)
[2024-09-22] MEDS ORDERED: DICYCLOMINE HCL 10 MG CAPSULE PO PRN (13:50)
[2024-09-22] MEDS ORDERED: MAGNESIUM HYDROX 2400MG/30ML ORAL SUSPENSION 30 ML CUP PO PRN (13:50)
[2024-09-22] MEDS ORDERED: BISMUTH SUBSALICYLATE 524 MG/30 ML PO PRN (13:50)
[2024-09-22] MEDS ORDERED: BENZONATATE 200 MG CAPSULE PO PRN (13:50)
[2024-09-22] MEDS ORDERED: P-EPHED 60MG/TRIPROLIDI 2.5MG TABLET PO PRN (13:50)
[2024-09-22] MEDS ORDERED: guaiFENesin 600 MG TABLET.ER (FP) PO PRN (13:50)
[2024-09-22] MEDS ORDERED: NALOXONE (NARCAN) HCL 4 MG/0.1 ML SPRAY NS PRN (13:50)
[2024-09-22] MEDS: THIAMINE 100 MG TABLET PO SCH (22:38)
[2024-09-22] MEDS: MELATONIN 5 MG TABLETS PO SCH (22:38)
[2024-09-22] MEDS: METHOCARBAMOL 500 MG TABLET PO PRN (22:38)
[2024-09-23] MEDS: PRENATAL VITAMINS W/ FOLIC ACID TABLET (FP) PO SCH (09:33)
[2024-09-23] MEDS: methaDONE HCL 10 MG TABLET (FOR DETOX USE ONLY) PO ONE (09:33)
[2024-09-23] MEDS: NICOTINE POLACRILEX 4 MG GUM BUC PRN (13:25)
[2024-09-23] MEDS: cloNIDine HCL 0.1 MG TABLET PO PRN (17:54)
[2024-09-23] MEDS: hydrOXYzine PAMOATE 25 MG CAPSULE (FP) PO PRN (17:54)
[2024-09-23] MEDS: QUEtiapine FUMARATE 100 MG TABLET (FP) PO SCH (22:36)
[2024-09-24] MEDS ORDERED: methaDONE HCL 10 MG TABLET (FOR DETOX USE ONLY) PO ONE (10:00)
[2024-09-24] MEDS: NICOTINE POLACRILEX 4 MG LOZENGE BC PRN (11:19)
[2024-09-25] MEDS: methaDONE HCL 10 MG TABLET (FOR DETOX USE ONLY) PO ONE (10:44)
[2024-09-26 13:05] LABS: POTASSIUM 3.7 mmol/L (3.5-5.1)
[2024-09-26 13:08] LABS: BASO % 0.5 % (0-2.0); EOS % 4.2 % (0-4.5); HEMATOCRIT 37.2 % (32.4-45.2); HEMOGLOBIN 12.7 GM/dL (10.7-15.3); LYMPH % 33.8 % (8-40); MCH 30.6 pg (25.7-33.7); MCHC 34.2 g/dl (32.0-36.0); MEAN CELL VOLUME 89.3 fl (80-96); MONO % 7.8 % (3.8-10.2); NEUT % 53.7 % (42.8-82.8); PLATELET COUNT 226 10^3/uL (134-434); RBC 4.17 M/mm3 (3.60-5.2); RDW 13.7 % (11.6-15.6); WHITE BLOOD COUNT 4.8 K/mm3 (4.0-10.0)
[2024-09-26 13:14] LABS: ALBUMIN 3.6 g/dl (3.4-5.0); BLOOD UREA NITROGEN 11.1 mg/dL (7-18); CREATININE 0.6 mg/dL (0.55-1.3)
[2024-09-26 13:16] LABS: BILIRUBIN,TOTAL 0.2 mg/dL (0.2-1); CALCIUM 9.3 mg/dL (8.5-10.1); TOT PROT 7.3 g/dl (6.4-8.2)
[2024-09-26] MEDS ORDERED: methaDONE HCL 10 MG TABLET PO ONE (15:06)
[2024-09-27] MEDS: IBUPROFEN 600 MG TABLET (FP) PO PRN (08:37)
[2024-09-27] MEDS: ONDANSETRON *ODT* 4 MG TABLET SL PRN (09:32)
[2024-09-27] MEDS ORDERED: methaDONE HCL 10 MG TABLET (FOR DETOX USE ONLY) PO ONE (10:00)
[2024-09-27] MEDS: NALOXONE (NYS OPIOID OVERDOSE PROGRAM) 4 MG/0.1 ML SPRAY NS SCH (15:48)
[2024-09-27] MEDS: IBUPROFEN 400 MG TABLET (FP) PO PRN (22:52)
[2024-09-28] MEDS: ACETAMINOPHEN 325 MG TABLET (FP) PO PRN (05:57)
[2024-09-28] MEDS: methaDONE 40 MG, methaDONE 30 MG PO ONE (09:06)
[2024-09-29 09:13] VITALS: BP 104/63; PULSE 81; RESP 18; TEMP 97.4
[2024-09-29] MEDS: methaDONE HCL 40 MG DISPERSABLE TABLET PO ONE (10:49)
== END 2024-09-29 11:21 | disposition home or self-care (01) | DRG 773 ==
LOC: YASAS 12:20 → Y6N 16:14
PROVIDERS: ADMIT Allergy & Immunology; ATTEND Surgery
PROC: HZ2ZZZZ Detoxification Services for Substance Abuse Treatment (ICD-10-PCS; principal; 2024-09-22)
DX: F11.23 Opioid dependence with withdrawal (principal); F14.20 Cocaine dependence, uncomplicated; F12.20 Cannabis dependence, uncomplicated; F17.220 Nicotine dependence, chewing tobacco, uncomplicated; F17.210 Nicotine dependence, cigarettes, uncomplicated; F19.280 Other psychoactive substance dependence with psychoactive substance-induced anxiety disorder; F19.24 Other psychoactive substance dependence with psychoactive substance-induced mood disorder; F31.9 Bipolar disorder, unspecified
CPT/HCPCS: 36415; 80053; 80305; 80307; 81025; 85025; 86780; Q0162